=== PATIENT | male | born 1960 | race Caucasian/White ===

== ENCOUNTER 2016-11-15 16:27 | Observation (INO) | payer OTHER ==
[2016-11-15] MEDS ORDERED: Amiodarone In Dextrose,Iso-Osm 0 ML IV ONE (16:28)
[2016-11-15] MEDS ORDERED: Amiodarone In Dextrose,Iso-Osm 150 MG in Premix Bag 1 BAG IV ONE ×2 (16:33)
[2016-11-15] MEDS ORDERED: Sodium Chloride 0.9% 1,000 ML IV ONE (16:37)
[2016-11-15] MEDS ORDERED: Morphine 2 MG/ML Syringe ONE (16:46)
[2016-11-15] MEDS ORDERED: Morphine 2 MG/ML Syringe IVPUSH ONE (16:47)
[2016-11-15 17:14] LABS: CHLORIDE,CL 102 mmol/L (98-110); SODIUM,NA 140 mmol/L (136-146)
--- NOTE | 2016-11-15 17:34 | EDM.PDOC ---
ED HPI GENERAL MEDICAL PROBLEM - General Chief Complaint: Cardiovascular Problem Stated Complaint: PT HAS HIGH HEART RATE Time Seen by Provider: 11/15/16 17:31 Source of Information: Reports: Patient, Provider - History of Present Illness INITIAL COMMENTS - FREE TEXT/NARRATIVE: HISTORY AND PHYSICAL: History of present illness: []Patient presents from the clinic he was at his primary care physician for feeling of heart racing, EKG revealed wide complex tachycardia he was sent directly to the emergency room for evaluation EKG continues to reveal wide complex tachycardia rate of 180s I did provide amiodarone 150 mg infusion, with no result patient had no chest pain shortness breath headache dizziness palpitation no bowel or urine symptoms Currently no fever nausea vomiting diarrhea constipation chest pain shortness breath headache dizziness palpitation no bowel or urine symptoms Ultimately patient was converted with cardioversion synchronized 100 J I did discuss patient with Dr. Shah cardiology he agrees with admission here rubs or abrasion and telemetry Review of systems: As per history of present illness and below otherwise all systems reviewed and negative. Past medical history: As per history of present illness and as reviewed below otherwise noncontributory. Surgical history: As per history of present illness and as reviewed below otherwise noncontributory. Social history: No reported history of drug or alcohol abuse. Family history: As per history of present illness and as reviewed below otherwise noncontributory. Physical exam: HEENT: Atraumatic, normocephalic, pupils reactive, negative for conjunctival pallor or scleral icterus, mucous membranes moist, throat clear, neck supple, nontender, trachea midline. Lungs: Clear to auscultation, breath sounds equal bilaterally, chest nontender. Heart: S1S2, regular, negative for clicks, rubs, or JVD. Abdomen: Soft, nondistended, nontender. Negative for masses or hepatosplenomegaly. Negative for costovertebral tenderness. Pelvis: Stable nontender. Genitourinary: Deferred. Rectal: Deferred. Extremities: Atraumatic, negative for cords or calf pain. Neurovascular unremarkable. Neuro: Awake, alert, oriented. Cranial nerves II through XII unremarkable. Cerebellum unremarkable. Motor and sensory unremarkable throughout. Exam nonfocal. Diagnostics: Lab as below Chest 1 view EKG Therapeutics: []Amiodarone 150 mg IV infusion Cardioversion 100 J Impression: []Wide complex tachycardia post cardioversion Stable sinus rhythm rate 102 Definitive disposition and diagnosis as appropriate pending reevaluation and review of above. no pain verbalized Pain Score (Numeric/FACES): 0 - Related Data Allergies Allergy/AdvReac Type Severity Reaction Status Date / Time No Known Allergies Allergy Verified 11/15/16 16:35 Home Meds: Home Meds ALPRAZolam [Alprazolam] 2 mg PO BEDTIME 11/15/16 [History] Dextroamphetamine/Amphetamine [Adderall 10 mg Tablet] 60 mg PO DAILY 11/15/16 [ History] Hydrochlorothiazide 12.5 mg PO DAILY 11/15/16 [History] Omeprazole 20 mg pe PO ACBREAKFAST 11/15/16 [History] Valsartan 160 mg PO DAILY 11/15/16 [History] amLODIPine [Norvasc] 5 mg PO DAILY 11/15/16 [History] Social & Family History - Tobacco Use Smoking Status *Q: Never Smoker - Recreational Drug Use Recreational Drug Use: No ED ROS GENERAL - Review of Systems Review Of Systems: ROS reveals no pertinent complaints other than HPI. ED EXAM, GENERAL - Physical Exam Exam: See Below Course - Vital Signs Last Recorded V/S: Last Vital Signs Temp 36.1 C 11/15/16 16:35 Pulse 189 H 11/15/16 16:35 Resp 18 11/15/16 16:35 BP 130/90 11/15/16 16:35 Pulse Ox 98 11/15/16 16:35 - Orders/Labs/Meds Orders: Active Orders 24 hr Category Date Time Status Admission Status [Patient Status] [ADT] Stat ADT 11/15/16 17:34 Ordered Chest 1V Frontal [CR] Stat Exams 11/15/16 16:38 Taken MAGNESIUM [CHEM] Stat Lab 11/15/16 17:24 Ordered Sodium Chloride 0.9% [Normal Saline] 1,000 ml Med 11/15/16 16:37 Active IV STAT Medication Orders Sodium Chloride (Normal Saline) 1,000 mls @ 999 mls/hr IV STAT ONE Stop: 11/15/16 17:37 Last Admin: 11/15/16 16:40 Dose: 999 mls/hr Labs: Laboratory Tests 11/15/16 11/15/16 11/15/16 Range/Units 16:30 16:30 16:30 WBC 15.41 H (4.0-11.0) K/uL RBC 5.78 (4.50-5.90) M/uL Hgb 16.8 (13.0-17.0) g/dL Hct 49.9 (38.0-50.0) % MCV 86.3 (80.0-98.0) fL MCH 29.1 (27.0-32.0) pg MCHC 33.7 (31.0-37.0) g/dL RDW Std Deviation 44.6 (28.0-62.0) fl RDW Coeff of Devin 14 (11.0-15.0) % Plt Count 347 (150-400) K/uL MPV 10.90 (7.40-12.00) fL Neut % (Auto) 65.3 (48.0-80.0) % Lymph % (Auto) 24.7 (16.0-40.0) % Lander % (Auto) 7.9 (0.0-15.0) % Eos % (Auto) 1.6 (0.0-7.0) % Baso % (Auto) 0.5 (0.0-1.5) % Neut # (Auto) 10.1 H (1.4-5.7) K/uL Lymph # (Auto) 3.8 H (0.6-2.4) K/uL Lander # (Auto) 1.2 H (0.0-0.8) K/uL Eos # (Auto) 0.3 (0.0-0.7) K/uL Baso # (Auto) 0.1 (0.0-0.1) K/uL Nucleated RBC % 0.0 /100WBC Nucleated RBCs # 0 K/uL Sodium 140 (136-146) mmol/L Potassium 3.3 L (3.5-5.1) mmol/L Chloride 102 (98-110) mmol/L Carbon Dioxide 26 (21-31) mmol/L BUN 25 H (6.0-23.0) mg/dL Creatinine 1.2 (0.6-1.5) mg/dL Est Cr Clr Drug Dosing 84.39 mL/min Estimated GFR (MDRD) > 60.0 ml/min Glucose 112 H (60-110) mg/dL Calcium 9.2 (8.8-10.8) mg/dL Total Bilirubin 1.0 (0.1-1.5) mg/dL AST 21 (5-40) IU/L ALT 36 (8-54) IU/L Alkaline Phosphatase 95 (40-150) Troponin I < 0.10 (0.0-0.29) NG/ML Total Protein 7.3 (6.0-8.0) g/dL Albumin 4.2 (3.5-5.0) g/dL Globulin 3.1 (2.0-3.5) g/dL Albumin/Globulin Ratio 1.4 (1.3-2.8) Meds: Medications Generic Name Dose Route Start Last Admin Trade Name Freq PRN Reason Stop Dose Admin Sodium Chloride 1,000 mls @ 999 mls/hr 11/15/16 16:37 11/15/16 16:40 Normal Saline IV 11/15/16 17:37 999 mls/hr STAT ONE Administration Discontinued Medications Generic Name Dose Route Start Last Admin Trade Name Freq PRN Reason Stop Dose Admin Amiodarone HCl/Dextrose 150 mg 100 mls @ 400 mls/hr 11/15/16 16:33 11/15/16 16:37 / Premix IV 11/15/16 16:47 400 mls/hr NOW ONE Administration Protocol Morphine Sulfate 2 mg 11/15/16 16:47 11/15/16 16:48 Morphine IVPUSH 11/15/16 16:48 2 mg ONETIME ONE Administration Morphine Sulfate Confirm 11/15/16 16:46 Morphine Administered 11/15/16 16:47 Dose 2 mg .ROUTE .STK-MED ONE Departure - Departure Time of Disposition: 17:36 Disposition: Refer to Observation Condition: Fair Clinical Impression: Ventricular tachycardia Forms: ED Department Discharge - My Orders Last 24 Hours: My Active Orders 11/15/16 16:37 Sodium Chloride 0.9% [Normal Saline] 1,000 ml IV STAT 11/15/16 16:38 Chest 1V Frontal [CR] Stat 11/15/16 17:24 MAGNESIUM [CHEM] Stat 11/15/16 17:34 Admission Status [Patient Status] [ADT] Stat - Assessment/Plan Last 24 Hours: My Active Orders 11/15/16 16:37 Sodium Chloride 0.9% [Normal Saline] 1,000 ml IV STAT 11/15/16 16:38 Chest 1V Frontal [CR] Stat 11/15/16 17:24 MAGNESIUM [CHEM] Stat 11/15/16 17:34 Admission Status [Patient Status] [ADT] Stat
[2016-11-15] MEDS ORDERED: Metoprolol Tartrate 5 MG/5 ML SDV IVPUSH STA (19:42)
[2016-11-15] MEDS ORDERED: Potassium Chloride 10% 20 MEQ/15 ML Soln 30 ML UD Cup PO ONE (19:44)
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
[2016-11-15] MEDS ORDERED: Temazepam 15 MG Cap PO PRN (19:55)
[2016-11-15] MEDS ORDERED: Ondansetron 4 MG Tab.DIS PO PRN (19:55)
[2016-11-15] MEDS ORDERED: Acetaminophen 325 MG Tab PO PRN (19:55)
[2016-11-15] MEDS ORDERED: Bisacodyl 5 MG Tab PO PRN (19:55)
[2016-11-15] MEDS ORDERED: Docusate Sodium 100 MG Cap PO PRN (19:55)
[2016-11-15] MEDS ORDERED: Aspirin 81 MG Tab.Chew PO ONE (21:33)
[2016-11-15] MEDS: Enoxaparin 40 MG/0.4 ML Syringe SUBCUT SCH (21:34)
[2016-11-15] MEDS: Metoprolol Succinate 50 MG Tab.ER PO SCH (21:35)
[2016-11-15] MEDS: ALPRAZolam 0.5 MG Tab PO SCH (21:36)
[2016-11-16 05:49] LABS: CHLORIDE,CL 102 mmol/L (98-110); SODIUM,NA 140 mmol/L (136-146)
[2016-11-16] MEDS: Omeprazole 20 MG Cap.CR PO SCH (07:38)
[2016-11-16] MEDS: Aspirin 81 MG Tab.Chew PO SCH (09:59)
[2016-11-16] MEDS: amLODIPine 5 MG Tab PO SCH (09:59)
[2016-11-16] MEDS: Enoxaparin 40 MG/0.4 ML Syringe SUBCUT SCH (10:00)
[2016-11-16] MEDS: Metoprolol Succinate 50 MG Tab.ER PO SCH ×2 (10:00→21:47)
--- NOTE | 2016-11-16 10:10 | CR ---
EXAM DATE: 11/15/16 PATIENT'S AGE: 56 Patient: JOVI GUILLORY Facility: [place], [place] Site . Site : 1960 Study: XRay Chest [id number] 5:15:44 PM Ordering Physician: Nimco iMllan Final Report: INDICATIONS: Pain. Shortness of breath. TECHNIQUE: Chest 1 view. COMPARISON: None FINDINGS: No pneumothorax, pleural effusion or airspace consolidation. Cardiac and mediastinal contours are within normal limits. Upper abdomen and osseous structures show no acute abnormality. IMPRESSION: No evidence of acute cardiopulmonary disease. Dictated by Wilber Campo MD @ 11/15/2016 5:20:07 PM Dictated by: Wilber Campo MD @ 11/15/2016 17:20:16 (Electronic Signature) Report Signed by Proxy. [facility] FACILITYTana
--- NOTE | 2016-11-16 12:08 | PCM.PN ---
- General Info Date of Service: 11/16/16 Admission Dx/Problem (Free Text): Admission Diagnosis/Problem Admission Diagnosis/Problem Ventricular tachycardia Subjective Update: Doing well this morning. No palpitations since cardioconverted in ED. No chest pain, sob, nausea, or vomiting. States that he never had any of these symptoms with his palpitations. Eating and eliminating without difficulty. Is from [place] and has no PCP here. Reports that he has had these acute palpitations for months if not years. Functional Status: Reports: pain controlled - Review of Systems General: Denies: Fever, Weakness, Fatigue HEENT: Denies: contact lenses, dysphasia Pulmonary: Denies: shortness of breath, pleuritic chest pain, cough Cardiovascular: Denies: Chest Pain, Palpitations, Lightheadedness Gastrointestinal: Denies: Abdominal pain, Constipation, Hematochezia Genitourinary: Denies: dysuria Musculoskeletal: Denies: neck pain Skin: Denies: cyanosis Neurological: Denies: Confusion, Dizziness, Headache Psychiatric: Denies: confusion - Patient Data Vitals - most recent: Last Vital Signs Temp 35.7 C 11/16/16 08:00 Pulse 63 11/16/16 10:00 Resp 16 11/16/16 08:00 BP 130/83 11/16/16 10:00 Pulse Ox 97 11/16/16 08:00 Weight - most recent: 139.9 kg I&O - last 24 hours: Intake & Output 11/15/16 11/16/16 11/16/16 22:59 06:59 14:59 Intake Total 400 Output Total 600 Balance -200 Lab Results last 24 hrs: Laboratory Results - last 24 hr 11/16/16 11/16/16 Range/Units 04:48 04:48 WBC 9.38 (4.0-11.0) K/uL RBC 5.18 (4.50-5.90) M/uL Hgb 14.6 (13.0-17.0) g/dL Hct 44.9 (38.0-50.0) % MCV 86.7 (80.0-98.0) fL MCH 28.2 (27.0-32.0) pg MCHC 32.5 (31.0-37.0) g/dL RDW Std Deviation 43.4 (28.0-62.0) fl RDW Coeff of Devin 14 (11.0-15.0) % Plt Count 284 (150-400) K/uL MPV 11.00 (7.40-12.00) fL Neut % (Auto) 58.2 (48.0-80.0) % Lymph % (Auto) 30.2 (16.0-40.0) % Evans % (Auto) 8.3 (0.0-15.0) % Eos % (Auto) 2.8 (0.0-7.0) % Baso % (Auto) 0.5 (0.0-1.5) % Neut # (Auto) 5.5 (1.4-5.7) K/uL Lymph # (Auto) 2.8 H (0.6-2.4) K/uL Evans # (Auto) 0.8 (0.0-0.8) K/uL Eos # (Auto) 0.3 (0.0-0.7) K/uL Baso # (Auto) 0.1 (0.0-0.1) K/uL Nucleated RBC % 0.0 /100WBC Nucleated RBCs # 0 K/uL Sodium 140 (136-146) mmol/L Potassium 3.6 (3.5-5.1) mmol/L Chloride 102 (98-110) mmol/L Carbon Dioxide 28 (21-31) mmol/L BUN 20 (6.0-23.0) mg/dL Creatinine 0.9 (0.6-1.5) mg/dL Est Cr Clr Drug Dosing 112.47 mL/min Estimated GFR (MDRD) > 60.0 ml/min Glucose 95 (60-110) mg/dL Calcium 8.5 L (8.8-10.8) mg/dL Magnesium 1.6 (1.5-2.3) mEq/L Med Orders - Current: Current Medications Acetaminophen (Tylenol) 650 mg PO Q4H PRN PRN Reason: Pain (Mild 1-3)/fever Last Admin: 11/16/16 10:26 Dose: 650 mg Alprazolam (Xanax) 2 mg PO BEDTIME [facility] Last Admin: 11/15/16 21:36 Dose: 2 mg Amlodipine Besylate (Norvasc) 5 mg PO DAILY [facility] Last Admin: 11/16/16 09:59 Dose: 5 mg Aspirin (Aspirin) 81 mg PO DAILY [facility] Last Admin: 11/16/16 09:59 Dose: 81 mg Bisacodyl (Dulcolax) 5 mg PO DAILY PRN PRN Reason: Constipation Docusate Sodium (Colace) 100 mg PO BID PRN PRN Reason: Constipation Enoxaparin Sodium (Lovenox) 40 mg SUBCUT DAILY [facility] Last Admin: 11/16/16 10:00 Dose: 40 mg Metoprolol Succinate (Toprol Xl) 50 mg PO BID [facility] Last Admin: 11/16/16 10:00 Dose: 50 mg Omeprazole (Omeprazole) 20 mg PO ACBREAKFAST [facility] Last Admin: 11/16/16 07:38 Dose: 20 mg Ondansetron HCl (Zofran Odt) 4 mg PO Q4H PRN PRN Reason: nausea, able to take PO Temazepam (Restoril) 15 mg PO BEDTIME PRN PRN Reason: Sleep Valsartan (Diovan) 160 mg PO DAILY [facility] Last Admin: 11/16/16 10:00 Dose: 160 mg Discontinued Medications Aspirin (Aspirin) 81 mg PO ONETIME ONE Stop: 11/15/16 21:34 Last Admin: 11/15/16 23:06 Dose: 81 mg Amiodarone HCl/Dextrose 150 mg (/ Premix) 100 mls @ 400 mls/hr IV NOW ONE PRN Reason: Protocol Stop: 11/15/16 16:47 Last Admin: 11/15/16 16:37 Dose: 400 mls/hr Sodium Chloride (Normal Saline) 1,000 mls @ 999 mls/hr IV STAT ONE Stop: 11/15/16 17:37 Last Admin: 11/15/16 16:40 Dose: 999 mls/hr Amiodarone HCl/Dextrose (Nexterone In Dextrose 150 Mg/100 Ml) Confirm Administered Dose 100 mls @ as directed IV .STK-MED ONE Stop: 11/15/16 16:29 Last Admin: 11/16/16 06:32 Dose: Not Given Metoprolol Tartrate (Lopressor) 5 mg IVPUSH NOW STA Stop: 11/15/16 19:43 Last Admin: 11/15/16 21:28 Dose: 5 mg Morphine Sulfate (Morphine) 2 mg IVPUSH ONETIME ONE Stop: 11/15/16 16:48 Last Admin: 11/15/16 16:48 Dose: 2 mg Morphine Sulfate (Morphine) Confirm Administered Dose 2 mg .ROUTE .STK-MED ONE Stop: 11/15/16 16:47 Last Admin: 11/15/16 18:11 Dose: Not Given Potassium Chloride (Potassium Chloride) 40 meq PO ONETIME ONE Stop: 11/15/16 19:45 Last Admin: 11/15/16 21:34 Dose: 40 meq - Exam Quality Assessment: DVT prophylaxis General: alert, oriented, cooperative, no acute distress HEENT: Pupils equal, Pupils reactive, EOMI, Mucous membr. moist/pink Neck: supple Lungs: Clear to auscultation, Normal respiratory effort Cardiovascular: Regular Rate, Regular Rhythm, No Murmurs Abdomen: bowel sounds present, soft, no tenderness, no distension Back Exam: Normal Inspection Extremities: no edema, normal pulses, no tenderness/swelling Peripheral Pulses: 2+: Radial (L), Radial (R), Posterior Tibial (L), Posterior Tibial (R), Dorsalis Pedis (L), Dorsalis Pedis (R) Skin: warm, dry, intact Wound/Incisions: healing well Neurological: no new focal deficit Psy/Mental Status: alert, normal affect, normal mood - Problem List & Annotations (1) Essential (primary) hypertension SNOMED Code(s): 34532906 Code(s): I10 - ESSENTIAL (PRIMARY) HYPERTENSION Status: Chronic Priority : Medium Current Visit: Yes (2) Ventricular tachycardia SNOMED Code(s): 43823763, 78252515 Code(s): I47.2 - VENTRICULAR TACHYCARDIA Status: Resolved Priority: High Current Visit: Yes - Problem List Review Problem List Initiated/Reviewed/Updated: Yes - Plan Plan:: 56 yo male admitted 11/15/16 for wide complex tachycardia with history of htn. Wide complex tachycardia: No further episodes after cardioversion and since starting beta emmy. Will cont. Dr. Fajardo sqe consulted and will see patient this morning. No troponins as most likely elevated after recent electrical cardioversion. Thyroid studies within normal limits. Cont. telemetry. Hypokalemia: Resolved with replacement. cont. to monitor. VTE: Lovenox, SCD Dispo: 1-2 days.
[2016-11-16] MEDS ORDERED: Magnesium Sulfate/Water 4 GM in Premix Bag 1 BAG IV ONE (18:30)
[2016-11-16] MEDS: Potassium Chloride 10% 20 MEQ/15 ML Soln 30 ML UD Cup PO SCH (19:32)
[2016-11-16] MEDS: Amiodarone 200 MG Tab PO SCH (19:33)
--- NOTE | 2016-11-16 20:23 | CONS ---
DATE OF CONSULTATION: DATE OF : 1960 PRIMARY CARE PHYSICIAN: None PCP REASON FOR CONSULTATION: Wide-complex tachycardia. HISTORY OF PRESENT ILLNESS: This is a 56-year-old willa with a recent diagnosis of hypertension and also ADHD, taking Adderall. 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 He was found to have a very fast heart rate and then he was transferred to the emergency room emergently. At that time, because of wide - complex tachycardia and concerned of VT. He was given synchronous cardioversion of 100 joules and he converted to sinus rhythm. He stated that he has had symptom of possibly dizziness as well as sweating for almost 6 minutes and that is why 2 months ago, he bought a Fitbit and he keeps track of his heart rate. In October at least, he had a fast heart rate in the range of 189 beats per minute 3 times, otherwise the other time was around 112 to 120. It is not related to any activities. It could happen at rest or exertion. Denies chest pain. Denies dizziness. REVIEW OF SYSTEMS: A 12-point has been negative except indicated for HPI. PAST MEDICAL HISTORY: History of hypertension and GERD. SOCIAL HISTORY: He smokes cigar socially. No drug use. No alcohol use. FAMILY HISTORY: No family history of sudden cardiac arrest or CAD or arrhythmia. PHYSICAL EXAMINATION: VITAL SIGNS: Blood pressure is 122/69, heart rate of 56, temperature 35.9, O2 saturation is 96, and respirations 20. HEENT: No pallor. No jaundice. No JVD. HEART: Normal S1 and S2. No murmur. LUNGS: Clear. ABDOMEN: Soft and nontender. Bowel sounds present. No hepatosplenomegaly. LEGS: No edema. EKG: EKG on 11/15/2016 showed wide-complex tachycardia and concern of VT. INVESTIGATION: CBC showed WBC initially 15, coming down to 9; hematocrit 44; hemoglobin 14; platelets 284. Sodium 140, potassium initially 3.3, chloride 102, bicarb 26, BUN 25, creatinine 1.2, glucose 112, and magnesium 1.7. Troponin was negative. TSH was normal. ASSESSMENT AND PLAN: This is a 56-year-old male with a history of hypertension with wide-complex tachycardia, asymptomatic and concerned about ventricular tachycardia. It could be related to Adderall as well, but I think we need to rule out ischemia. I recommended him to have a coronary angiogram done and he was thinking about transfer by ambulance because of financial costs and he does not live in [place] at all. Basically, he does not have the place to leave or stay and he was thinking about discharge home and then drive there by himself and get seen by weather stripper. If he is going to be discharged from the hospital, I think he needs to be wearing the LifeVest and I will start him on amiodarone p.o. and repeat EKG in the morning. His echocardiogram seemed to be preserved ejection fraction and I would keep his potassium above 4 as well as magnesium above 2. CHRISTINE LYMAN /[id number] MTDTana
[2016-11-16] MEDS: ALPRAZolam 0.5 MG Tab PO SCH (20:47)
[2016-11-17 05:54] LABS: CHLORIDE,CL 104 mmol/L (98-110); SODIUM,NA 138 mmol/L (136-146)
[2016-11-17] MEDS: Omeprazole 20 MG Cap.CR PO SCH (06:46)
[2016-11-17] MEDS: Aspirin 81 MG Tab.Chew PO SCH (09:26)
[2016-11-17] MEDS: Enoxaparin 40 MG/0.4 ML Syringe SUBCUT SCH (09:26)
[2016-11-17] MEDS: Potassium Chloride 10% 20 MEQ/15 ML Soln 30 ML UD Cup PO SCH (09:26)
[2016-11-17] MEDS: Metoprolol Succinate 50 MG Tab.ER PO SCH (09:27)
[2016-11-17] MEDS: amLODIPine 5 MG Tab PO SCH (09:28)
[2016-11-17] MEDS: Amiodarone 200 MG Tab PO SCH (09:46)
[2016-11-17 11:55] VITALS: BP 127/81
--- NOTE | 2016-11-17 12:05 | PCM.PN ---
- General Info Date of Service: 11/17/16 Admission Dx/Problem (Free Text): 56M recently diagnosed HTN with WCT Subjective Update: He felt well, no symptoms of palpitation SOB CP Functional Status: Reports: pain controlled - Review of Systems General: Reports: No Symptoms HEENT: Reports: no symptoms Pulmonary: Reports: no symptoms Cardiovascular: Reports: No Symptoms Gastrointestinal: Reports: No symptoms Genitourinary: Reports: no symptoms Musculoskeletal: Reports: no symptoms Skin: Reports: no symptoms Neurological: Reports: No Symptoms Psychiatric: Reports: no symptoms - Patient Data Vitals - most recent: Last Vital Signs Temp 35.6 C 11/17/16 11:54 Pulse 61 11/17/16 11:54 Resp 20 11/17/16 11:54 BP 127/81 11/17/16 11:54 Pulse Ox 94 L 11/17/16 11:54 Weight - most recent: 139.9 kg I&O - last 24 hours: Intake & Output 11/16/16 11/17/16 11/17/16 22:59 06:59 14:59 Intake Total 950 300 Output Total 525 705 Balance 425 -405 Lab Results last 24 hrs: Laboratory Results - last 24 hr 11/17/16 11/17/16 Range/Units 04:42 04:42 Sodium 138 (136-146) mmol/L Potassium 4.0 (3.5-5.1) mmol/L Chloride 104 (98-110) mmol/L Carbon Dioxide 25 (21-31) mmol/L BUN 19 (6.0-23.0) mg/dL Creatinine 0.9 (0.6-1.5) mg/dL Est Cr Clr Drug Dosing 112.47 mL/min Estimated GFR (MDRD) > 60.0 ml/min Glucose 86 (60-110) mg/dL Calcium 8.6 L (8.8-10.8) mg/dL Magnesium 2.1 (1.5-2.3) mEq/L Med Orders - Current: Current Medications Acetaminophen (Tylenol) 650 mg PO Q4H PRN PRN Reason: Pain (Mild 1-3)/fever Last Admin: 11/16/16 10:26 Dose: 650 mg Alprazolam (Xanax) 2 mg PO BEDTIME [facility] Last Admin: 11/16/16 20:47 Dose: 2 mg Amiodarone HCl (Cordarone) 400 mg PO BID [facility] Last Admin: 11/17/16 09:46 Dose: 400 mg Amlodipine Besylate (Norvasc) 5 mg PO DAILY [facility] Last Admin: 11/17/16 09:28 Dose: 5 mg Aspirin (Aspirin) 81 mg PO DAILY [facility] Last Admin: 11/17/16 09:26 Dose: 81 mg Bisacodyl (Dulcolax) 5 mg PO DAILY PRN PRN Reason: Constipation Docusate Sodium (Colace) 100 mg PO BID PRN PRN Reason: Constipation Enoxaparin Sodium (Lovenox) 40 mg SUBCUT DAILY [facility] Last Admin: 11/17/16 09:26 Dose: 40 mg Metoprolol Succinate (Toprol Xl) 50 mg PO BID [facility] Last Admin: 11/17/16 09:27 Dose: 50 mg Omeprazole (Omeprazole) 20 mg PO ACBREAKFAST [facility] Last Admin: 11/17/16 06:46 Dose: 20 mg Ondansetron HCl (Zofran Odt) 4 mg PO Q4H PRN PRN Reason: nausea, able to take PO Potassium Chloride (Potassium Chloride) 40 meq PO BID [facility] Stop: 11/17/16 21:01 Last Admin: 11/17/16 09:26 Dose: 40 meq Temazepam (Restoril) 15 mg PO BEDTIME PRN PRN Reason: Sleep Valsartan (Diovan) 160 mg PO DAILY [facility] Last Admin: 11/17/16 09:27 Dose: 160 mg Discontinued Medications Aspirin (Aspirin) 81 mg PO ONETIME ONE Stop: 11/15/16 21:34 Last Admin: 11/15/16 23:06 Dose: 81 mg Amiodarone HCl/Dextrose 150 mg (/ Premix) 100 mls @ 400 mls/hr IV NOW ONE PRN Reason: Protocol Stop: 11/15/16 16:47 Last Admin: 11/15/16 16:37 Dose: 400 mls/hr Sodium Chloride (Normal Saline) 1,000 mls @ 999 mls/hr IV STAT ONE Stop: 11/15/16 17:37 Last Admin: 11/15/16 16:40 Dose: 999 mls/hr Amiodarone HCl/Dextrose (Nexterone In Dextrose 150 Mg/100 Ml) Confirm Administered Dose 100 mls @ as directed IV .STK-MED ONE Stop: 11/15/16 16:29 Last Admin: 11/16/16 06:32 Dose: Not Given Magnesium Sulfate 4 gm/ Premix 100 mls @ 50 mls/hr IV ONETIME ONE Stop: 11/16/16 20:29 Last Admin: 11/16/16 19:32 Dose: 50 mls/hr Metoprolol Tartrate (Lopressor) 5 mg IVPUSH NOW STA Stop: 11/15/16 19:43 Last Admin: 11/15/16 21:28 Dose: 5 mg Morphine Sulfate (Morphine) 2 mg IVPUSH ONETIME ONE Stop: 11/15/16 16:48 Last Admin: 11/15/16 16:48 Dose: 2 mg Morphine Sulfate (Morphine) Confirm Administered Dose 2 mg .ROUTE .STK-MED ONE Stop: 11/15/16 16:47 Last Admin: 11/15/16 18:11 Dose: Not Given Potassium Chloride (Potassium Chloride) 40 meq PO ONETIME ONE Stop: 11/15/16 19:45 Last Admin: 11/15/16 21:34 Dose: 40 meq - Exam General: alert, oriented HEENT: Pupils equal, Pupils reactive Neck: supple Lungs: Clear to auscultation, Normal respiratory effort Cardiovascular: Regular Rate Abdomen: bowel sounds present (Male) Exam: No Hernia Back Exam: Normal Inspection Extremities: no edema EKG INTERPRETATION EKG Date: 11/17/16 Rhythm: NSR - Problem List Review Problem List Initiated/Reviewed/Updated: Yes - My Orders Last 24 Hours: My Active Orders 11/16/16 18:15 Amiodarone [Cordarone] 400 mg PO BID 11/16/16 18:30 Potassium Chloride 40 meq PO BID 11/17/16 07:00 EKG 12 Lead [EKG Documentation Completion] [RC] AM - Plan Plan:: 56 yo male admitted 11/15/16 for wide complex tachycardia with history of htn. 1. WCT: s/p synchronized cardioversion 100 J, amiodarone 400 BID started, I spent lengthy time discuss further investigation including coronary angiogram. However, he does not live here, he stays in the truck, and from [place]. He stated that he would rather drive himself to [facility] in [place] and have the procedure done for coronary angiogram. I also recommend him to be transferred by the ambulance and he will be managed by hospitalist and marketing rotation associate over for further inestigation, however he refused to be transferred and concerned about the expense. I also gave him another option which having him wear lifevest at discharge, and schedule guy for him to see marketing rotation associate over there as outpt, however, he refused to wear lifevest. He verbalized understanding of adverse consequences not wearing lifevest at discharge or transferred. I explained to him, he can certainly drive himself to [facility] in [place], but we cannot guarantee that he will be seen in marketing rotation associate the same day, and he will take his own risk of not wearing lifevest and not being transferred by medical profession. ECG was done this morning. showed possible delta wave. The WCT could be SVT with abberation, I would still emparically treat his arrhythmia with amiodarone until proven otherwise plan - cardiology f/u for possible cath - amiodarone 400 BID for 2 weeks then 200 daily onwards Thank you for allowing me in patient care, please feel free to reach us anytime with any questions. All questions asked were answered. Patient in agreement with plan of care
--- NOTE | 2016-11-17 13:21 | PCM.DCSUM1 ---
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 56 yo male with pmh of hypertension and ADHD who presents with palpitations and found to have wide complex tachycardia with HR of 180s. He did not respond to adenosine but was converted to normal sinus rhythm with synchronized cardioversion. Patient was monitored on the medical floor and placed on amiodarone and metoprolol. His Adderal was discontinued. Dr. Gipson was consulted and recommended transfer for cardiac cath and life vest. He is aware of the risks of sudden cardiac but refused transfer and cardiac life vest. I called and spoke with Dr. Irving at [facility] and arranged for follow up at November 23 at 8:30 am. Patient was instructed to be NPO after midnight as he may have cardiac cath after appointment. - Patient Instructions Diet: Usual Diet as Tolerated - Discharge Plan Prescriptions/Med Rec: Amiodarone [Cordarone] 400 mg PO BID #42 tablet Metoprolol Succinate [Toprol XL] 50 mg PO BID #60 tab.er Home Medications: Home Meds ALPRAZolam 2 mg PO BEDTIME 11/15/16 [History] Hydrochlorothiazide 12.5 mg PO DAILY 11/15/16 [History] Omeprazole 20 mg pe PO ACBREAKFAST 11/15/16 [History] Valsartan 160 mg PO DAILY 11/15/16 [History] amLODIPine [Norvasc] 5 mg PO DAILY 11/15/16 [History] Amiodarone [Cordarone] 400 mg PO BID #42 tablet 11/17/16 [Rx] Aspirin 81 mg PO DAILY tab.chew 11/17/16 [Rx] Metoprolol Succinate [Toprol XL] 50 mg PO BID #60 tab.er 11/17/16 [Rx] Referrals: Rodriguez Gipson MD [Physician] - 11/24/16 8:30 am Elmer Funk MD [Physician] - 11/23/16 11:30 am - Patient Data Vitals - Most Recent: Last Vital Signs Temp 35.6 C 11/17/16 11:54 Pulse 61 11/17/16 11:54 Resp 20 11/17/16 11:54 BP 127/81 11/17/16 11:54 Pulse Ox 94 L 11/17/16 11:54 Weight - Most Recent: 139.9 kg I&O - Last 24 hours: Intake & Output 11/16/16 11/17/16 11/17/16 22:59 06:59 14:59 Intake Total 950 300 Output Total 525 705 Balance 425 -405 Lab Results - Last 24 hrs: Laboratory Results - last 24 hr 11/17/16 11/17/16 Range/Units 04:42 04:42 Sodium 138 (136-146) mmol/L Potassium 4.0 (3.5-5.1) mmol/L Chloride 104 (98-110) mmol/L Carbon Dioxide 25 (21-31) mmol/L BUN 19 (6.0-23.0) mg/dL Creatinine 0.9 (0.6-1.5) mg/dL Est Cr Clr Drug Dosing 112.47 mL/min Estimated GFR (MDRD) > 60.0 ml/min Glucose 86 (60-110) mg/dL Calcium 8.6 L (8.8-10.8) mg/dL Magnesium 2.1 (1.5-2.3) mEq/L Med Orders - Current: Current Medications Acetaminophen (Tylenol) 650 mg PO Q4H PRN PRN Reason: Pain (Mild 1-3)/fever Last Admin: 11/16/16 10:26 Dose: 650 mg Alprazolam (Xanax) 2 mg PO BEDTIME [facility] Last Admin: 11/16/16 20:47 Dose: 2 mg Amiodarone HCl (Cordarone) 400 mg PO BID [facility] Last Admin: 11/17/16 09:46 Dose: 400 mg Amlodipine Besylate (Norvasc) 5 mg PO DAILY [facility] Last Admin: 11/17/16 09:28 Dose: 5 mg Aspirin (Aspirin) 81 mg PO DAILY [facility] Last Admin: 11/17/16 09:26 Dose: 81 mg Bisacodyl (Dulcolax) 5 mg PO DAILY PRN PRN Reason: Constipation Docusate Sodium (Colace) 100 mg PO BID PRN PRN Reason: Constipation Enoxaparin Sodium (Lovenox) 40 mg SUBCUT DAILY [facility] Last Admin: 11/17/16 09:26 Dose: 40 mg Metoprolol Succinate (Toprol Xl) 50 mg PO BID [facility] Last Admin: 11/17/16 09:27 Dose: 50 mg Omeprazole (Omeprazole) 20 mg PO ACBREAKFAST [facility] Last Admin: 11/17/16 06:46 Dose: 20 mg Ondansetron HCl (Zofran Odt) 4 mg PO Q4H PRN PRN Reason: nausea, able to take PO Potassium Chloride (Potassium Chloride) 40 meq PO BID [facility] Stop: 11/17/16 21:01 Last Admin: 11/17/16 09:26 Dose: 40 meq Temazepam (Restoril) 15 mg PO BEDTIME PRN PRN Reason: Sleep Valsartan (Diovan) 160 mg PO DAILY [facility] Last Admin: 11/17/16 09:27 Dose: 160 mg Discontinued Medications Aspirin (Aspirin) 81 mg PO ONETIME ONE Stop: 11/15/16 21:34 Last Admin: 11/15/16 23:06 Dose: 81 mg Amiodarone HCl/Dextrose 150 mg (/ Premix) 100 mls @ 400 mls/hr IV NOW ONE PRN Reason: Protocol Stop: 11/15/16 16:47 Last Admin: 11/15/16 16:37 Dose: 400 mls/hr Sodium Chloride (Normal Saline) 1,000 mls @ 999 mls/hr IV STAT ONE Stop: 11/15/16 17:37 Last Admin: 11/15/16 16:40 Dose: 999 mls/hr Amiodarone HCl/Dextrose (Nexterone In Dextrose 150 Mg/100 Ml) Confirm Administered Dose 100 mls @ as directed IV .STK-MED ONE Stop: 11/15/16 16:29 Last Admin: 11/16/16 06:32 Dose: Not Given Magnesium Sulfate 4 gm/ Premix 100 mls @ 50 mls/hr IV ONETIME ONE Stop: 11/16/16 20:29 Last Admin: 11/16/16 19:32 Dose: 50 mls/hr Metoprolol Tartrate (Lopressor) 5 mg IVPUSH NOW STA Stop: 11/15/16 19:43 Last Admin: 11/15/16 21:28 Dose: 5 mg Morphine Sulfate (Morphine) 2 mg IVPUSH ONETIME ONE Stop: 11/15/16 16:48 Last Admin: 11/15/16 16:48 Dose: 2 mg Morphine Sulfate (Morphine) Confirm Administered Dose 2 mg .ROUTE .STK-MED ONE Stop: 11/15/16 16:47 Last Admin: 11/15/16 18:11 Dose: Not Given Potassium Chloride (Potassium Chloride) 40 meq PO ONETIME ONE Stop: 11/15/16 19:45 Last Admin: 11/15/16 21:34 Dose: 40 meq *Q Meaningful Use (DIS) - VTE *Q VTE Criteria *Q: - Stroke *Q Stroke Criteria *Q: - AMI *Q AMI Criteria *Q:
--- NOTE | 2016-11-17 14:16 | ECHO ---
EXAM DATE: 11/15/16 PATIENT'S AGE: 56 The echocardiogram report can be seen in this patient's EMR (Electronic Medical Record) in the Reports section. [facility]
== END 2016-11-17 15:00 | disposition home or self-care (01) ==
LOC: MW.ED 16:27 → MW.MS 17:34
PROVIDERS: ADMIT Family Medicine; ATTEND Family Medicine
DX: I47.2 Ventricular tachycardia (principal); R00.2 Palpitations; I10 Essential (primary) hypertension; I34.0 Nonrheumatic mitral (valve) insufficiency; E87.6 Hypokalemia; I45.6 Pre-excitation syndrome; F90.9 Attention-deficit hyperactivity disorder, unspecified type; Z79.82 Long term (current) use of aspirin
CPT/HCPCS: 36415; 71010; 80048; 80053; 83735; 84439; 84443; 84484; 85025; 92960; 93005; 93306; 96361; 96374; 96375; 99285; A9270; J0282; J1650; J2270; J3475; J7040; 96365; 96366; 96372; 99284; G0378